=== PATIENT | female | born 2005 | race Caucasian/White ===

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

== ENCOUNTER → 2024-01-20 | Outpatient (CLI) | payer BC ==
--- NOTE | 2024-01-20 22:29 | CT ---
EXAMINATION TYPE: CT abdomen wo con DATE OF EXAM: 01/20/2024 COMPARISON: 11/30/2020 INDICATION: epigastric pain DLP: 430.4 mGycm, Automated exposure control for dose reduction was used. CONTRAST: 0 mL of Isovue 300. Study performed with Oral Contrast TECHNIQUE: Axial images were obtained from above the diaphragm to the pubic rami in the axial plane a t 5 mm thick sections. Reconstructed images are reviewed on the computer in the coronal plane. FINDINGS: No abdominal wall hernia is evident. No hiatal hernia evident Limited CT sections are obtained the lung bases. The lung bases are clear. CT ABDOMEN: Liver: Normal Spleen: Normal Pancreas: Normal Adrenal glands: The adrenal glands are normal. Gallbladder: Normal Kidneys: No masses are evident. No hydronephrosis is present. No cysts are present. No renal stone s present. Aorta: Normal Inferior vena cava: Normal. Loops of bowel within the abdomen and pelvis are normal. There are loops of bowel which are incom pletely distended or lack oral contrast limiting their evaluation. IMPRESSION: 1. No acute abnormality CT abdomen
== END | disposition home or self-care (01) ==
LOC: RADCTMAIN 15:59
PROVIDERS: ATTEND Family Medicine
DX: Z00.00 Encounter for general adult medical examination without abnormal findings (principal); R10.13 Epigastric pain
CPT/HCPCS: 74150

== ENCOUNTER → 2024-06-22 | Outpatient (CLI) | payer BC ==
--- NOTE | 2024-06-22 22:21 | MR ---
EXAMINATION TYPE: MR brain wo/w con DATE OF EXAM: 06/22/2024 COMPARISON: None HISTORY: Numbness and tingling BLE, headaches. CONTRAST: Performed utilizing 9 mL intravenous Gadavist gadolinium contrast. TECHNIQUE: Multiplanar, multiecho imaging on a 3.0 Nelly magnet is performed through the brain. Stud y is performed within 24 hours of arrival to the hospital. The craniovertebral junction is normal. The pituitary is normal. Diffusion-weighted imaging is performed. No abnormal hyperintensity is present to suggest an acute i ntracranial infarct or acute ischemic change. No signal abnormality within the brain T2 and inversion recovery weighted sequences. Additional T1 po st contrast imaging is unremarkable. Ventricles and sulci are appropriate for the patient age. IMPRESSION: 1. No suspicious intracranial changes Pre- and Postcontrast MRI brain. [facility], , 06/22/2024 10:18 PM
== END | disposition home or self-care (01) ==
LOC: RADMRIMAIN 15:33
PROVIDERS: ATTEND Internal Medicine
DX: R20.2 Paresthesia of skin
CPT/HCPCS: 70553